=== PATIENT | male | born 1965 | race Caucasian/White ===

== ENCOUNTER 2021-05-21 15:49 | Inpatient (IN) | payer OTHER ==
[2021-05-21] MEDS ORDERED: ONDANSETRON *ODT* 4 MG TABLET SL PRN (16:08)
[2021-05-21] MEDS ORDERED: MAGNESIUM CITRATE 300 ML BOTTLE PO PRN (16:08)
[2021-05-21] MEDS ORDERED: MAG HYDROX/AL HYDROX/SIMETH 30 ML UNIT-DOSE CUP PO PRN (16:08)
[2021-05-21] MEDS ORDERED: BISMUTH SUBSALICYLATE 524 MG/30 ML PO PRN (16:08)
[2021-05-21] MEDS ORDERED: MAGNESIUM HYDROX 2400MG/30ML ORAL SUSPENSION 30 ML CUP PO PRN (16:08)
[2021-05-21] MEDS ORDERED: NICOTINE 10 MG CARTRIDGE (INHALER) IH PRN (16:08)
[2021-05-21] MEDS ORDERED: MENTHOL/PHENOL 1 EACH UD MM PRN (16:08)
[2021-05-21] MEDS ORDERED: ACETAMINOPHEN 325 MG TABLET (FP) PO PRN ×2 (16:08)
[2021-05-21] MEDS ORDERED: IBUPROFEN 400 MG TABLET (FP) PO PRN (16:08)
[2021-05-21 16:45] VITALS: BMI 20.7
[2021-05-21] MEDS: MELATONIN 5 MG TABLETS PO SCH (21:38)
[2021-05-21] MEDS: THIAMINE HCL 100 MG TABLET (FP) PO SCH (21:38)
[2021-05-21] MEDS: PRENATAL VITAMINS W/ FOLIC ACID TABLET (FP) PO SCH (21:42)
[2021-05-21] MEDS: NICOTINE 7 MG/24 HOURS TOPICAL PATCH TD SCH (21:42)
[2021-05-21] MEDS: hydrOXYzine PAMOATE 25 MG CAPSULE (FP) PO SCH ×2 (21:42→21:43)
[2021-05-22] MEDS: hydrOXYzine PAMOATE 25 MG CAPSULE (FP) PO SCH (05:45)
[2021-05-22] MEDS ORDERED: methaDONE HCL 10 MG TABLET PO SCH (09:30)
[2021-05-22] MEDS ORDERED: methaDONE HCL 10 MG TABLET ONE (10:07)
[2021-05-22] MEDS ORDERED: methaDONE HCL 40 MG DISPERSABLE TABLET ONE (10:07)
[2021-05-22 10:12] LABS: HEMATOCRIT 38.6 % (35.4-49); MCH 32.5 pg (25.7-33.7); MCHC 33.5 g/dl (32.0-35.9); MEAN CELL VOLUME 96.9 fl (80-96); MEAN PLT VOLUME 11.7 fl (7.5-11.1); PLATELET COUNT 96 10^3/uL (134-434); RBC 3.99 M/mm3 (4.00-5.60); WHITE BLOOD COUNT 2.2 K/mm3 (4.0-10.0)
[2021-05-22 10:22] LABS: ALBUMIN 2.4 g/dl (3.4-5.0); CALCIUM 8.4 mg/dL (8.5-10.1)
[2021-05-22 10:23] LABS: BLOOD UREA NITROGEN 11.2 mg/dL (7-18)
[2021-05-22 10:26] LABS: CREATININE 0.6 mg/dL (0.55-1.3)
[2021-05-22 10:27] LABS: BILIRUBIN,TOTAL 0.3 mg/dL (0.2-1); TOT PROT 5.8 g/dl (6.4-8.2)
[2021-05-22] MEDS: NICOTINE 7 MG/24 HOURS TOPICAL PATCH TD SCH (10:47)
[2021-05-22] MEDS: PRENATAL VITAMINS W/ FOLIC ACID TABLET (FP) PO SCH (10:47)
[2021-05-22] MEDS: methaDONE 40 MG, methaDONE 10 MG PO SCH (10:47)
[2021-05-22] MEDS: METHOCARBAMOL 500 MG TABLET PO PRN (10:50)
[2021-05-22] MEDS ORDERED: LORazepam 1 MG TABLET PO PRN (12:00)
[2021-05-22] MEDS ORDERED: LORazepam 2 MG TABLET PO ONE (12:00)
[2021-05-22] MEDS: LORazepam 2 MG TABLET PO SCH ×2 (17:47→22:13)
[2021-05-22] MEDS: BENZOCAINE 20 % GEL TUBE MM PRN (17:51)
[2021-05-22] MEDS: THIAMINE HCL 100 MG TABLET (FP) PO SCH (22:13)
[2021-05-22] MEDS: MELATONIN 5 MG TABLETS PO SCH (22:13)
[2021-05-23] MEDS ORDERED: methaDONE HCL 40 MG DISPERSABLE TABLET ONE (04:45)
[2021-05-23] MEDS ORDERED: methaDONE HCL 10 MG TABLET ONE (04:45)
[2021-05-23] MEDS: methaDONE 40 MG, methaDONE 10 MG PO SCH (05:39)
[2021-05-23] MEDS: LORazepam 2 MG TABLET PO SCH ×4 (05:39→22:25)
[2021-05-23] MEDS: NICOTINE 7 MG/24 HOURS TOPICAL PATCH TD SCH (10:10)
[2021-05-23] MEDS: NICOTINE POLACRILEX 2 MG GUM BUC PRN (10:10)
[2021-05-23] MEDS: PRENATAL VITAMINS W/ FOLIC ACID TABLET (FP) PO SCH (10:10)
[2021-05-23] MEDS ORDERED: LORazepam 0.5 MG TABLET PO PRN (12:05)
[2021-05-23] MEDS: BENZOCAINE 20 % GEL TUBE MM PRN (18:22)
[2021-05-23] MEDS: THIAMINE HCL 100 MG TABLET (FP) PO SCH (22:22)
[2021-05-23] MEDS: MELATONIN 5 MG TABLETS PO SCH (22:22)
[2021-05-24] MEDS ORDERED: methaDONE HCL 40 MG DISPERSABLE TABLET ONE (04:31)
[2021-05-24] MEDS ORDERED: methaDONE HCL 10 MG TABLET ONE (04:31)
[2021-05-24] MEDS: methaDONE 40 MG, methaDONE 10 MG PO SCH (06:40)
[2021-05-24] MEDS: LORazepam 1 MG TABLET PO SCH ×4 (06:40→22:12)
[2021-05-24] MEDS: PRENATAL VITAMINS W/ FOLIC ACID TABLET (FP) PO SCH (10:06)
[2021-05-24] MEDS: NICOTINE 7 MG/24 HOURS TOPICAL PATCH TD SCH (10:08)
[2021-05-24 10:48] LABS: BASO % 0.7 % (0-2.0); EOS % 7.4 % (0-4.5); HEMATOCRIT 39.5 % (35.4-49); HEMOGLOBIN 13.3 GM/dL (11.7-16.9); LYMPH % 41.1 % (8-40); MCH 32.9 pg (25.7-33.7); MCHC 33.7 g/dl (32.0-35.9); MEAN CELL VOLUME 97.6 fl (80-96); MEAN PLT VOLUME 12.2 fl (7.5-11.1); MONO % 17.8 % (3.8-10.2); PLATELET COUNT 102 10^3/uL (134-434); RBC 4.05 M/mm3 (4.00-5.60); RDW 12.5 % (11.9-15.9); WHITE BLOOD COUNT 2.8 K/mm3 (4.0-10.0)
[2021-05-24] MEDS: THIAMINE HCL 100 MG TABLET (FP) PO SCH (22:11)
[2021-05-24] MEDS: MELATONIN 5 MG TABLETS PO SCH (22:12)
[2021-05-25] MEDS ORDERED: methaDONE HCL 10 MG TABLET ONE (04:12)
[2021-05-25] MEDS ORDERED: methaDONE HCL 40 MG DISPERSABLE TABLET ONE (04:13)
[2021-05-25] MEDS: LORazepam 0.5 MG TABLET PO SCH ×4 (05:43→22:12)
[2021-05-25] MEDS: methaDONE 40 MG, methaDONE 10 MG PO SCH (05:44)
[2021-05-25] MEDS: PRENATAL VITAMINS W/ FOLIC ACID TABLET (FP) PO SCH (10:27)
[2021-05-25] MEDS: NICOTINE 7 MG/24 HOURS TOPICAL PATCH TD SCH (10:27)
[2021-05-25] MEDS: NICOTINE POLACRILEX 2 MG GUM BUC PRN (10:28)
[2021-05-25] MEDS: THIAMINE HCL 100 MG TABLET (FP) PO SCH (22:11)
[2021-05-25] MEDS: MELATONIN 5 MG TABLETS PO SCH (22:11)
[2021-05-26] MEDS ORDERED: methaDONE HCL 10 MG TABLET ONE (04:54)
[2021-05-26] MEDS ORDERED: methaDONE HCL 40 MG DISPERSABLE TABLET ONE (04:54)
[2021-05-26] MEDS ORDERED: LORazepam 0.5 MG TABLET PO ONE (05:00)
[2021-05-26] MEDS: methaDONE 40 MG, methaDONE 10 MG PO SCH (06:20)
[2021-05-26] MEDS: PRENATAL VITAMINS W/ FOLIC ACID TABLET (FP) PO SCH (10:23)
[2021-05-26] MEDS: NICOTINE 7 MG/24 HOURS TOPICAL PATCH TD SCH (10:23)
[2021-05-26] MEDS: MELATONIN 5 MG TABLETS PO SCH (22:17)
[2021-05-26] MEDS: THIAMINE HCL 100 MG TABLET (FP) PO SCH (22:17)
[2021-05-26] MEDS: METHOCARBAMOL 500 MG TABLET PO PRN (22:18)
[2021-05-27] MEDS ORDERED: methaDONE HCL 40 MG DISPERSABLE TABLET ONE (04:39)
[2021-05-27] MEDS ORDERED: methaDONE HCL 10 MG TABLET ONE (04:39)
[2021-05-27] MEDS: methaDONE 40 MG, methaDONE 10 MG PO SCH (05:44)
[2021-05-27 09:07] VITALS: BP 130/86; PULSE 78; TEMP 97.5
[2021-05-27] MEDS: NICOTINE 7 MG/24 HOURS TOPICAL PATCH TD SCH (09:23)
[2021-05-27] MEDS: PRENATAL VITAMINS W/ FOLIC ACID TABLET (FP) PO SCH (09:23)
== END 2021-05-27 09:30 | disposition home or self-care (01) | DRG 773 ==
LOC: YASAS 15:49 → Y3N 19:51
PROVIDERS: ADMIT Allergy & Immunology; ATTEND Allergy & Immunology
PROC: HZ2ZZZZ Detoxification Services for Substance Abuse Treatment (ICD-10-PCS; principal; 2021-05-21)
DX: F10.230 Alcohol dependence with withdrawal, uncomplicated (principal); F11.20 Opioid dependence, uncomplicated; F13.20 Sedative, hypnotic or anxiolytic dependence, uncomplicated; F17.210 Nicotine dependence, cigarettes, uncomplicated; F19.24 Other psychoactive substance dependence with psychoactive substance-induced mood disorder; F10.220 Alcohol dependence with intoxication, uncomplicated; E46 Unspecified protein-calorie malnutrition; D69.6 Thrombocytopenia, unspecified; D72.819 Decreased white blood cell count, unspecified; K08.89 Other specified disorders of teeth and supporting structures; Z68.20 Body mass index [BMI] 20.0-20.9, adult; Z86.59 Personal history of other mental and behavioral disorders
CPT/HCPCS: 36415; 80053; 85025; 85027; 86780; 93005; 93010; C9803; U0003; U0005

== ENCOUNTER 2025-01-02 18:07 | Inpatient (IN) | payer OTHER ==
[2025-01-02 18:58] VITALS: BMI 19.5
[2025-01-02] MEDS ORDERED: BISMUTH SUBSALICYLATE 524 MG/30 ML PO PRN (19:15)
[2025-01-02] MEDS ORDERED: NICOTINE POLACRILEX 2 MG GUM BUC PRN (19:15)
[2025-01-02] MEDS ORDERED: POLYETHYLENE GLYCOL (HEALTHYLAX) 3350 17 GM PACKET PO PRN (19:15)
[2025-01-02] MEDS ORDERED: BENZONATATE 200 MG CAPSULE PO PRN (19:15)
[2025-01-02] MEDS ORDERED: BENZOCAINE/MENTHOL (CHLORASEPTIC ) LOZENGE MM PRN (19:15)
[2025-01-02] MEDS ORDERED: IBUPROFEN 400 MG TABLET (FP) PO PRN (19:15)
[2025-01-02] MEDS ORDERED: MAGNESIUM HYDROX 2400MG/30ML ORAL SUSPENSION 30 ML CUP PO PRN (19:15)
[2025-01-02] MEDS ORDERED: LOPERAMIDE HCL 2 MG CAPSULE PO PRN (19:15)
[2025-01-02] MEDS ORDERED: guaiFENesin 600 MG TABLET.ER (FP) PO PRN (19:15)
[2025-01-02] MEDS ORDERED: DICYCLOMINE HCL 10 MG CAPSULE PO PRN (19:15)
[2025-01-02] MEDS ORDERED: hydrOXYzine PAMOATE 25 MG CAPSULE (FP) PO PRN (19:15)
[2025-01-02] MEDS ORDERED: NALOXONE (NARCAN) HCL 4 MG/0.1 ML SPRAY NS PRN (19:15)
[2025-01-02] MEDS ORDERED: diazePAM 5 MG TABLET PO PRN (19:15)
[2025-01-02] MEDS ORDERED: IBUPROFEN 600 MG TABLET (FP) PO PRN (19:15)
[2025-01-02] MEDS ORDERED: ONDANSETRON *ODT* 4 MG TABLET SL PRN (19:15)
[2025-01-02] MEDS: diazePAM 5 MG TABLET PO SCH (22:32)
[2025-01-02] MEDS: THIAMINE 100 MG TABLET PO SCH (22:32)
[2025-01-02] MEDS: MELATONIN 5 MG TABLETS PO SCH (22:32)
[2025-01-02] MEDS: METHOCARBAMOL 500 MG TABLET PO PRN (22:32)
[2025-01-03] MEDS: PRENATAL VITAMINS W/ FOLIC ACID TABLET (FP) PO SCH (10:17)
[2025-01-03] MEDS: NICOTINE 14 MG/24 HOURS TOPICAL PATCH TD SCH (10:17)
[2025-01-03] MEDS: methaDONE HCL 40 MG DISPERSABLE TABLET PO SCH (10:33)
[2025-01-03 15:41] LABS: HEMATOCRIT 43.9 % (40.1-51.0); HEMOGLOBIN 13.9 g/dL (13.7-17.5); MCHC 31.7 g/dl (32.3-36.5); MEAN CELL VOLUME 96.3 fl (79.0-92.2); PLATELET COUNT 82 x10^3/uL (163-337); RDW 14.2 % (12.2-16.1)
[2025-01-03 15:56] LABS: CHLORIDE 105 mmol/L (98-107); POTASSIUM 3.6 mmol/L (3.5-5.1); SODIUM 143 mmol/L (136-145)
[2025-01-03 15:58] LABS: ANION GAP 8 mmol/L (4-13); CO2 30 mmol/L (21-32)
[2025-01-03 15:59] LABS: GLUCOSE,RANDOM 88 mg/dL (74-106)
[2025-01-03 16:01] LABS: SGOT/AST 47 U/L (15-37); SGPT/ALT 37 U/L (13-61)
[2025-01-03 16:02] LABS: CREATININE 0.7 mg/dL (0.55-1.3)
[2025-01-03 16:03] LABS: BILIRUBIN,TOTAL 0.5 mg/dL (0.2-1); TOT PROT 6.4 g/dl (6.4-8.2)
[2025-01-03 16:04] LABS: ALK PHOS 116 U/L (45-117)
[2025-01-04] MEDS: diazePAM 5 MG TABLET PO SCH (05:47)
[2025-01-05] MEDS: diazePAM 5 MG TABLET PO SCH (05:48)
[2025-01-05] MEDS: MAG HYDROX/AL HYDROX/SIMETH 30 ML UNIT-DOSE CUP PO PRN (19:21)
[2025-01-06] MEDS: ACETAMINOPHEN 325 MG TABLET (FP) PO PRN (05:46)
[2025-01-06] MEDS: diazePAM 5 MG TABLET PO ONE (05:47)
[2025-01-06 06:38] VITALS: RESP 16
[2025-01-06 08:56] VITALS: BP 108/78; PULSE 67; TEMP 97.6
== END 2025-01-06 11:56 | disposition home or self-care (01) | DRG 773 ==
LOC: YASAS 18:07 → Y6N 20:58
PROVIDERS: ADMIT Allergy & Immunology; ATTEND Family Medicine Addiction Medicine
PROC: HZ2ZZZZ Detoxification Services for Substance Abuse Treatment (ICD-10-PCS; principal; 2025-01-02)
DX: F10.230 Alcohol dependence with withdrawal, uncomplicated (principal); F11.20 Opioid dependence, uncomplicated; F14.20 Cocaine dependence, uncomplicated; F17.210 Nicotine dependence, cigarettes, uncomplicated; Z59.02 Unsheltered homelessness
CPT/HCPCS: 36415; 80053; 80307; 85027; 86780; 93005; 93010